=== PATIENT | male | born 1980 | race Caucasian/White ===

== ENCOUNTER 2020-12-21 16:04 | Emergency (ER) | payer MEDICAID ==
[~2020-12-21] VITALS: Ht 193 cm; Wt 131.7 kg
--- NOTE | 2020-12-21 17:01 | NUR ---
SENT BY [facility] FOR US OF RLE TO R/O BLOOD CLOT. PT REPORTS NO TRAUMA, BUT SATURDAY NOTICED SOME PAIN IN LEG AND SWELLING, ABLE TO BWT. PT IN GOWN, NADN. CALL LIGHT W/IN REACH.
[2020-12-21 17:45] LABS: BASOPHILS % (AUTO) 1 % (0-1); EOSINOPHILS % (AUTO) 4 % (1-7); LYMPHOCYTES % (AUTO) 19 % (22-44); MEAN CORPUSCULAR HEMOGLOBIN 31.4 pg (27.5-34.5); MEAN CORPUSCULAR HGB CONC 34.8 g/dL (33.2-36.2); MEAN PLATELET VOLUME 8.1 fL (7.4-10.4); MONOCYTES % (AUTO) 9 % (2-9); NEUTROPHILS % (AUTO) 67 % (42-75); PLATELET COUNT 254 x10^3/uL (130-400); RED BLOOD COUNT 4.66 x10^6/uL (4.38-5.82); RED CELL DISTRIBUTION WIDTH 13.6 % (9.4-14.8)
[2020-12-21 17:50] LABS: ALANINE AMINOTRANSFERASE 23 U/L (12-78); ALBUMIN 3.9 g/dL (3.4-5.0); ANION GAP 5 mmol/L (5-15); CALCIUM 9.6 mg/dL (8.5-10.1); CHLORIDE 111 mmol/L (98-107); CREATININE 1.09 mg/dL (0.7-1.3); MD NO
[2020-12-21 17:53] LABS: ALKALINE PHOSPHATASE 44 U/L (45-117); BILIRUBIN,TOTAL 0.4 mg/dL (0.2-1.0); TOTAL PROTEIN 7.8 g/dL (6.4-8.2)
--- NOTE | 2020-12-21 17:56 | NUR ---
US TECH BEDSIDE NOW
[2020-12-21 18:18] VITALS: BP 146/48
--- NOTE | 2020-12-21 18:18 | NUR ---
PT RESTING ON [facility] TALKING ON CELL PHONE. PAT. CALL LIGHT W/IN REACH.
--- NOTE | 2020-12-21 18:59 | NUR ---
SBAR REPORT GIVEN TO JAMEEL
--- NOTE | 2020-12-21 19:02 | NUR ---
Report from Lalita ZAIDI
--- NOTE | 2020-12-21 19:07 | NUR ---
KIRAN wrap in place, pt made aware that once he recieves paperwork then he will be DC
== END 2020-12-21 19:26 | disposition home or self-care (01) ==
LOC: ED 16:34
DX: S80.11XA Contusion of right lower leg, initial encounter (principal); Z88.2 Allergy status to sulfonamides; X58.XXXA Exposure to other specified factors, initial encounter; Y93.89 Activity, other specified; Y92.89 Other specified places as the place of occurrence of the external cause; Y99.8 Other external cause status
CPT/HCPCS: 36415; 80053; 85025; 99284